=== PATIENT | female | born 1970 | race Two or more races ===

== ENCOUNTER 2024-08-05 07:36 | Inpatient (IN) | payer MEDICAID ==
[~2024-08-05] VITALS: Ht 167.6 cm; Wt 80.0 kg
--- NOTE | 2024-08-05 08:12 | ED.PDOC ---
General HPI Comments 53 year old female presents to the ED with chief complaint of urinary symptoms. Patient reports that she has been experiencing urinary frequency with associated right flank pain, nausea, and minimal urine output. Patient relays that she believes she either has a UTI or kidney stone as she has history of both. Patient denies any vomiting, diarrhea, dysuria, hematuria, fever, chills, or abdominal pain. Chief Complaint: Flank Pain Time Seen by MD: 07:54 Reviewed notes: Nurses Notes, Medications, Allergies Allergies: Coded Allergies: NO KNOWN ALLERGIES (Unverified , 08/05/24) Information Source: Patient Mode of Arrival: Ambulatory Severity: Moderate Inability to void: Moderate Timing: Days Duration: Since onset Prehospital treatment: None Onset: Spontaneous Symptoms: Frequency, Urgency, Other (minimal output) History of: UTI, Kidney stone Location: (R) Flank Modifying factors: None associated signs and symptoms: Flank Pain, Frequency, Urgency Past Medical History PAST MEDICAL HISTORY: DM, Kidney Stones, UTI'S Surgical History: Denies all surgeries [employer] WORK[employer] WORK[employer] History: Denies all [employer] WORK[employer] WORKER Hx Family History Family History: Reviewed,noncontributory to illness Social History Smoker: Non-Smoker Alcohol: Denies ETOH Use Drugs: Denies Drug Use Lives In: Home Constitutional: denies: chills, diaphoresis, fatigue, fever, malaise, sweats, weakness, others EENTM: denies: blurred vision, double vision, ear bleeding, ear discharge, ear drainage, ear pain, ear ringing, eye pain, eye redness, hearing loss, mouth pain, mouth swelling, nasal discharge, nose bleeding, nose congestion, nose pain, photophobia, tearing, throat pain, throat swelling, voice changes, others Respiratory: denies: cough, hemoptysis, orthopnea, SOB at rest, shortness of breath, SOB with excertion, stridor, wheezing, others Cardiovascular: denies: chest pain, dizzy spells, diaphoresis, Dyspnea on exertion, edema, irregular heart beat, left arm pain, lightheadedness, palpitations, PND, syncope, others Gastrointestinal: reports: nausea; denies: abdomen distended, abdominal pain, blood streaked bowels, constipated, diarrhea, dysphagia, difficulty swallowing, hematemesis, melena, poor appetite, poor fluid intake, rectal bleeding, rectal pain, vomiting, others Genitourinary: reports: flank pain, frequency, others (Minimal output); denies: abnormal vagina bleeding, burning, dyspareunia, dysuria, hematuria, incontinence, pain, , vagina discharge, urgency Neurological: denies: dizziness, fainting, headache, left sided numbness, left sided weakness, numbness, paresthesia, pre-existing deficit, right sided numbness, right sided weakness, seizure, speech problems, tingling, tremors, weakness, others Musculoskeletal: denies: back pain, gout, joint pain, joint swelling, muscle pain, muscle stiffness, neck pain, others Integumetry: denies: bruises, change in color, change in hair/nails, dryness, laceration, lesions, lumps, rash, wounds, others Allergic/Immunocompromised: denies: Difficulty Healing, Frequent Infections, Hives, Itching, others Hematologic/Lymphatic: denies: anemia, blood clots, easy bleeding, easy bruising, swollen glands, others Endocrine: denies: excessive hunger, excessive sweating, excessive thirst, excessive urination, flushing, intolerance to cold, intolerance to heat, unexplained weight gain, unexplained weight loss, others Psychiatric: denies: anxiety, bipolar disorder, depression, hopeless, panic disorder, schizophrenia, sleepless, suicidal, others All Other Systems: Reviewed and Negative Physical Exam General Appearance: No Apparent Distress, Normal HEENT: Normal ENT Inspection, PERRL/EOMI Neck: Full Range of Motion, Non-Tender, Normal, Normal Inspection Respiratory: Chest Non-Tender, Lungs Clear, No Accessory Muscle Use, No Respiratory Distress, Normal Breath Sounds Cardiovascular: No Edema, No JVD, No Murmur, No Gallop, Normal Peripheral Pulses, Regular Rate/Rhythm Breast Exam: Deferred Gastrointestinal: No Organomegaly, No Pulsatile Mass, Normal Bowel Sounds, Soft, Other (Right CVA tenderness) Genitalia: Deferred Pelvic: Deferred Rectal: Deferred Extremities: No calf tenderness, Normal capillary refill, Normal inspection, Normal range of motion, Non-tender, No pedal edema Musculoskeletal : Apperance: Normal Neurologic: Alert, manager creative II-XII nml as Tested, No Motor Deficits, Normal Affect, Normal Mood, No Sensory Deficits Cerebellar Function: Normal Reflexes: Normal Skin: Dry, Normal Color, Warm Lymphatic: No Adenopathy Was a procedure done? Was a procedure done?: No Differential Diagnosis Kidney stone (Female): N/A Kidney stone (Male): N/A Penile/Scrotal: N/A Urinary Problem (Male): Plelonephritis, Renal Failure, Urinary Retention, Urolithiasis, UTI X-Ray, Labs, Meds, VS Vital Signs Date Time Temp Pulse Resp B/P (MAP) Pulse Ox O2 Delivery O2 Flow Rate FiO2 08/05/24 09:27 Room Air* 0 21 08/05/24 09:21 81 18 96 Room Air 08/05/24 09:21 97.6 81 18 159/97 (117) 96 97.6 08/05/24 07:45 97.4 95 18 145/90 (108) 96 97.4 Lab Test 08/05/24 10:00 08/05/24 08:08 08/05/24 08:00 Range/Units Lactic Acid Level Pending 2.5 *H 0.4-2.0 mmol/L White Blood Count 8.1 4.4-10.8 10^3/uL Red Blood Count 5.51 H 4.0-5.20 10^6/uL Hemoglobin 13.1 12.2-16.2 g/dL Hematocrit 41.0 36.0-46.0 % Mean Corpuscular Volume 74.4 L 80.0-100.0 fL Mean Corpuscular Hemoglobin 23.8 L 28.0-32.0 pg Mean Corpuscular Hemoglobin Concent 32.0 32.0-36.0 g/dL Red Cell Distribution Width 19.5 H 11.8-14.3 % Platelet Count 230 140-450 10^3/uL Mean Platelet Volume 8.3 6.9-10.8 fL Neutrophils (%) (Auto) 76.8 37.0-80.0 % Lymphocytes (%) (Auto) 14.7 10.0-50.0 % Monocytes (%) (Auto) 6.6 0.0-12.0 % Eosinophils (%) (Auto) 1.6 0.0-7.0 % Basophils (%) (Auto) 0.3 0.0-2.0 % Neutrophils # (Auto) 6.3 1.6-8.6 10 ^3/uL Lymphocytes # (Auto) 1.2 0.4-5.4 10 ^3/uL Monocytes # (Auto) 0.5 0-1.3 10 ^3/uL Eosinophils # (Auto) 0.1 0-0.8 10 ^3/uL Basophils # (Auto) 0 0-0.2 10 ^3/uL Nucleated Red Blood Cells 0.0 % Sodium Level 137 136-145 mmol/L Potassium Level 3.4 L 3.5-5.1 mmol/L Chloride Level 102 98-107 mmol/L Carbon Dioxide Level 25 20-31 mmol/L Anion Gap 10 5-15 Blood Urea Nitrogen 12 9-23 mg/dL Creatinine 0.74 0.550-1.02 mg/dL Glomerular Filtration Rate Calc 98 >90 mL/min BUN/Creatinine Ratio 16.2 10.0-20.0 Serum Glucose 122 H 74-106 mg/dL Calcium Level 9.7 8.7-10.4 mg/dL Urine Color Dark-orange Yellow Urine Clarity Ex.turbid Clear Urine pH 6.0 5.0-9.0 Urine Specific [place] 1.021 1.001-1.035 Urine Protein 1+ H Negative Urine Ketones Negative Negative Urine Blood 3+ H Negative /uL Urine Nitrite 1+ H Negative Urine Bilirubin Negative Negative Urine Urobilinogen 2 H Negative mg/dL Urine Leukocyte Esterase 3+ Negative /uL Urine RBC 7279 0 - 4 /hpf Urine WBC Clumps Present None Seen /hpf Urine Microscopic WBC 962 H 0-5 /HPF Urine Squamous Epithelial Cells None seen <5 /hpf Urine Bacteria None seen None Seen /hpf Urine Yeast (Budding) Few None Seen /hpf Urine Glucose 4+ H Normal mg/dL Urine Test Negative Negative Current Medications Medications (Trade) Dose Ordered Sig/Sophia Route Start Time Stop Time Status Last Admin Sodium Chloride 1,000 ml @ 1,000 mls/hr Q1H ONCE IV 08/05/24 09:30 08/05/24 10:29 DC 08/05/24 09:41 Ceftriaxone Sodium 50 ml @ 100 mls/hr ONCE ONCE IV 08/05/24 09:30 08/05/24 09:59 DC 08/05/24 09:42 Ketorolac Tromethamine (Toradol Injection) 15 mg ONCE ONCE IV 08/05/24 09:45 08/05/24 09:46 DC 08/05/24 09:41 Time of 1ST Reevaluation: 08:54 Reevaluation 1ST: Unchanged Patient Education/Counseling: Diagnosis, Treatment Family Education/Counseling: No Family Present Additional Information Previous medical encounters reviewed: None The following tests were ordered, and results were reviewed by me: CHRISTOS Additional Information was gathered from interviewing the following independent historians: None I reviewed and agreed with the following test results read by other providers: None I discussed treatment and results with medical personnel and: Patient Comprehensive systems review obtained and negative except for what is stated in the HPI. Departure 1 Departure Time of Disposition: 10:41 (Patient presented with abdominal pain that was concerning for possible appendicits, gastritis, cholecystitis, colitis, gastroe nteritis, sbo, or orther possible surgical emergency. Data: 1. I ordered and reviewed the result of at least 3 labs including a CBC, BMP, and Urinalysis. 2. I independently interpreted the following tests: CT Abdoment and Pelvis is concerning for renal colic with larger stone .Risk:This patient has a high risk of morbidity due to further diagnostic testing or treatment and may suffer from an acute abdominal process disorder. Workup reveals renal colic with large stone and likely superimposed infection. and patient should be admitted for further workup. and possible expert consultation. ) Impression: Primary Impression: Renal colic on right side Additional Impression: Acute cystitis Qualified Codes: N30.01 - Acute cystitis with hematuria Disposition: ADMITTED INPATIENT Admit to: Med Surg Condition: Serious Critical Care Note Critical Care Time?: Yes Critical care comment: Intractable abdominal pain Authorized and Performed by: Kajal Pepe MD Total critical care time: Approximately 37 minutes Due to a high probability of clinically significant, life threatening deterioration, the patient required my highest level of preparedness to intervene emergently and I personally spent this critical care time directly and personally managing the patient. This critical care time included obtaining a history; examining the patient; pulse oximetry; ordering and review of studies; arranging urgent treatment with development of a management plan; evaluation of patient's response to treatment; frequent reassessment; and, discussions with other providers. This critical care time was performed to assess and manage the high probability of imminent, life-threatening deterioration that could result in multi-organ failure. It was exclusive of separately billable procedures and treating other patients and teaching time. Please see my other sections and the rest of the note for further information on patient assessment and treatment. Stability Stability form required: No Heart Score Heart Score: Heart Score Response (Comments) Value History N/A 0 EKG N/A 0 Age N/A 0 Risk Factors N/A 0 Troponin N/A 0 Total 0 I personally scribed for KAJAL PEPE MD ([email or web address]) on 08/05/24 at 08:12. Electronically submitted by Eris Martell ([email or web address]). KAJAL PEPE MD Aug 05, 2024 08:12
[2024-08-05 08:24] LABS: Basophils # (auto) 0 10 ^3/uL (0-0.2); Eosinophils # (auto) 0.1 10 ^3/uL (0-0.8); Monocytes # (auto) 0.5 10 ^3/uL (0-1.3); Monocytes % (auto) 6.6 % (0.0-12.0); Red Cell Distribution Width 19.5 % (11.8-14.3)
[2024-08-05 08:26] LABS: Basophils % (auto) 0.3 % (0.0-2.0); Eosinophils % (auto) 1.6 % (0.0-7.0); Hemoglobin 13.1 g/dL (12.2-16.2); Lymphocytes # (auto) 1.2 10 ^3/uL (0.4-5.4); Lymphocytes % (auto) 14.7 % (10.0-50.0); Mean Corpuscular Hemoglobin 23.8 pg (28.0-32.0); Mean Corpuscular Volume 74.4 fL (80.0-100.0); Neutrophils # (auto) 6.3 10 ^3/uL (1.6-8.6); Neutrophils % (auto) 76.8 % (37.0-80.0); Platelet Count (auto) 230 10^3/uL (140-450); Red Blood Cells 5.51 10^6/uL (4.0-5.20); White Blood Cell 8.1 10^3/uL (4.4-10.8)
[2024-08-05 08:30] LABS: Urine Bacteria None Seen /hpf (None Seen)
[2024-08-05 08:36] LABS: Chloride 102 mmol/L (98-107); Sodium 137 mmol/L (136-145)
[2024-08-05 08:37] LABS: Anion Gap 10 (5-15); Calcium 9.7 mg/dL (8.7-10.4); Carbon Dioxide 25 mmol/L (20-31); Potassium 3.4 mmol/L (3.5-5.1)
[2024-08-05 08:42] LABS: BUN/Creatinine Ratio 16.2 (10.0-20.0); Blood Urea Nitrogen 12 mg/dL (9-23)
[2024-08-05 08:43] LABS: Glucose 122 mg/dL (74-106)
[2024-08-05 08:48] LABS: Lactic Acid w/Reflex 2.5 mmol/L (0.4-2.0)
[2024-08-05 09:21] LABS: Urine Blood 3+ /uL (Negative); Urine Budding Yeast FEW /hpf (None Seen); Urine Clarity Ex.Turbid (Clear); Urine Color Dark-Orange (Yellow); Urine Protein, UAD 1+ (Negative); Urine Specific Gravity 1.021 (1.001-1.035); Urine Squamous Epithelial Cell None Seen /hpf (<5); Urine Urobilinogen 2 mg/dL (Negative); Urine WBC 962 /HPF (0-5); Urine WBC Clumps PRESENT /hpf (None Seen)
[2024-08-05] MEDS: KETOROLAC TROMETH 30 MG/ML 1ML VIAL IV ONE (09:41)
[2024-08-05] MEDS: SODIUM CHLORIDE 0.9% 1,000 ML IV ONE (09:41)
[2024-08-05] MEDS: cefTRIAXone 1GM/50ML D5W 50 ML IV ONE (09:42)
--- NOTE | 2024-08-05 10:36 | DVH ---
CT ABDOMEN AND PELVIS WITHOUT CONTRAST CLINICAL HISTORY: right flank pain TECHNIQUE: Multiple contiguous axial images of the abdomen and pelvis without intravenous contrast. T he images were reformatted degenerate coronal and sagittal reconstructions. All CT scans at this medical facility are performed using dose modulation techniques as appropriate t o a performed exam including the following:Automated exposure control was utilized; adjustment of the MA and/or KV according to patient size; and use of iterative reconstruction technique. Radiation Dose Information: CT Dose: CTDI volume is 7.8 mGy. Dose-length product is 403 mGy*cm Comparison: None FINDINGS: Evaluation of the abdomen and pelvis is limited without intravenous contrast. There is a 5 mm calcification in the right pelvis along the expected course of the right ureter likel y a distal ureteral calculus. The visualized right ureter is mildly dilated. There is mild right hydr onephrosis. There is no evidence of left renal nephrolithiasis or hydronephrosis. The liver, gallbladder, pancreas, adrenal glands, and spleen appear within normal limits. There is no gross evidence of abdominal lymphadenopathy. There is no free fluid or free air. The stomach grossly appears unremarkable. The small and large bowel loops demonstrate normal caliber and distribution. The appendix is not seen in the right lower quadrant abdomen. There are no seconda ry signs of acute appendicitis. The abdominal aorta and IVC appear within normal limits. The bladder appears unremarkable for the degree of distention. The uterus appears within normal limit s.. There is no gross evidence of a pelvic mass. There is no free fluid collection. Lung bases are clear. There is no acute osseous abnormality. IMPRESSION: 1. 5 mm calcification in the right pelvis along the expected course of the right ureter likely a dist al ureteral calculus. There is mild right hydroureteronephrosis. HS:Y
[2024-08-05] MEDS: TAMSULOSIN HYDROCHLORIDE 0.4 MG CAP PO ONE (11:27)
[2024-08-05] MEDS: MORPHINE SULFATE 4 MG/ML SYR/VIAL IV ONE (11:30)
[2024-08-05] MEDS ORDERED: DEXTROSE (50%) 50ML SYRG IV PRN (14:15)
[2024-08-05] MEDS ORDERED: ACETAMINOPHEN 325 MG TAB PO PRN (14:15)
--- NOTE | 2024-08-05 14:19 | DVHHP2 ---
History of Present Illness Reason for Visit: Right flank pain History of Present Illness Vesta Vázquez is a 53-year-old female with past medical history of diabetes, UTIs, kidney stones and appendectomy who presents to the ED with right flank pain. Patient states that the pain is currently 8/10 sharp and intermittent nature. Patient reports that she constantly gets UTIs and that this is the same kind of pain. Patient denies any recent trauma or injury, recent sick contacts, fever or chills, abdominal pain, nausea, vomiting, diarrhea, chest pain, shortness of breath, lightheadedness, weakness, or dizziness. Renal/: UTI Endocrine: Diabetes Past Medical History Kidney stones Past Surgical History: Appendectomy Family History: DM, Other (Mom with diabetes) Smoke: No ALCOHOL: none Drugs: None Lives: with Family Domestic Violence: Neg Review of Systems Genitourinary: Dysuria, Frequency, Other (Right flank pain) Musculoskeletal: other (Right flank pain) Allergies: Coded Allergies: NO KNOWN ALLERGIES (Unverified , 08/05/24) Exam Vital Signs Vital Signs Date Time Temp Pulse Resp B/P (MAP) Pulse Ox O2 Delivery O2 Flow Rate FiO2 08/05/24 12:21 98.6 81 18 142/75 (97) 96 98.6 08/05/24 09:27 Room Air* 0 21 General Appearance: Alert, Oriented X3, Cooperative, No acute distress HEENT: Atraumatic, PERRLA, EOMI, Mucous membr. moist/pink Respiratory: Clear to auscultation, Normal air movement Cardiovascular: Regular rate, Normal S1, Normal S2, No murmurs Abdominal: Normal bowel sounds, Soft, No tenderness, No hepatospenomegaly, No masses Extremities: No clubbing, No cyanosis, No edema, Normal pulses, No tenderness/swelling Skin: No significant lesion Neuro: Normal gait, Normal speech, Strength at 5/5 X4 ext, Normal tone, Sensation intact Psych/Mental Status: Mental status NL, Mood NL Labs/Xrays Labs Test 08/05/24 10:00 08/05/24 08:08 08/05/24 08:00 Range/Units Lactic Acid Level 2.4 *H 0.4-2.0 mmol/L White Blood Count 8.1 4.4-10.8 10^3/uL Red Blood Count 5.51 H 4.0-5.20 10^6/uL Hemoglobin 13.1 12.2-16.2 g/dL Hematocrit 41.0 36.0-46.0 % Mean Corpuscular Volume 74.4 L 80.0-100.0 fL Mean Corpuscular Hemoglobin 23.8 L 28.0-32.0 pg Mean Corpuscular Hemoglobin Concent 32.0 32.0-36.0 g/dL Red Cell Distribution Width 19.5 H 11.8-14.3 % Platelet Count 230 140-450 10^3/uL Mean Platelet Volume 8.3 6.9-10.8 fL Neutrophils (%) (Auto) 76.8 37.0-80.0 % Lymphocytes (%) (Auto) 14.7 10.0-50.0 % Monocytes (%) (Auto) 6.6 0.0-12.0 % Eosinophils (%) (Auto) 1.6 0.0-7.0 % Basophils (%) (Auto) 0.3 0.0-2.0 % Neutrophils # (Auto) 6.3 1.6-8.6 10 ^3/uL Lymphocytes # (Auto) 1.2 0.4-5.4 10 ^3/uL Monocytes # (Auto) 0.5 0-1.3 10 ^3/uL Eosinophils # (Auto) 0.1 0-0.8 10 ^3/uL Basophils # (Auto) 0 0-0.2 10 ^3/uL Nucleated Red Blood Cells 0.0 % Sodium Level 137 136-145 mmol/L Potassium Level 3.4 L 3.5-5.1 mmol/L Chloride Level 102 98-107 mmol/L Carbon Dioxide Level 25 20-31 mmol/L Anion Gap 10 5-15 Blood Urea Nitrogen 12 9-23 mg/dL Creatinine 0.74 0.550-1.02 mg/dL Glomerular Filtration Rate Calc 98 >90 mL/min BUN/Creatinine Ratio 16.2 10.0-20.0 Serum Glucose 122 H 74-106 mg/dL Calcium Level 9.7 8.7-10.4 mg/dL Urine Color Dark-orange Yellow Urine Clarity Ex.turbid Clear Urine pH 6.0 5.0-9.0 Urine Specific [place] 1.021 1.001-1.035 Urine Protein 1+ H Negative Urine Ketones Negative Negative Urine Blood 3+ H Negative /uL Urine Nitrite 1+ H Negative Urine Bilirubin Negative Negative Urine Urobilinogen 2 H Negative mg/dL Urine Leukocyte Esterase 3+ Negative /uL Urine RBC 7279 0 - 4 /hpf Urine WBC Clumps Present None Seen /hpf Urine Microscopic WBC 962 H 0-5 /HPF Urine Squamous Epithelial Cells None seen <5 /hpf Urine Bacteria None seen None Seen /hpf Urine Yeast (Budding) Few None Seen /hpf Urine Glucose 4+ H Normal mg/dL Urine Test Negative Negative CT ABDOMEN AND PELVIS WITHOUT CONTRAST CLINICAL HISTORY: right flank pain TECHNIQUE: Multiple contiguous axial images of the abdomen and pelvis without intravenous contrast. The images were reformatted degenerate coronal and sagittal reconstructions. All CT scans at this medical facility are performed using dose modulation techniques as appropriate to a performed exam including the following:Automated exposure control was utilized; adjustment of the MA and/or KV according to patient size; and use of iterative reconstruction technique. Radiation Dose Information: CT Dose: CTDI volume is 7.8 mGy. Dose-length product is 403 mGy*cm Comparison: None FINDINGS: Evaluation of the abdomen and pelvis is limited without intravenous contrast. There is a 5 mm calcification in the right pelvis along the expected course of the right ureter likely a distal ureteral calculus. The visualized right ureter is mildly dilated. There is mild right hydronephrosis. There is no evidence of left renal nephrolithiasis or hydronephrosis. The liver, gallbladder, pancreas, adrenal glands, and spleen appear within normal limits. There is no gross evidence of abdominal lymphadenopathy. There is no free fluid or free air. The stomach grossly appears unremarkable. The small and large bowel loops demonstrate normal caliber and distribution. The appendix is not seen in the right lower quadrant abdomen. There are no secondary signs of acute appendicitis. The abdominal aorta and IVC appear within normal limits. The bladder appears unremarkable for the degree of distention. The uterus appears within normal limits.. There is no gross evidence of a pelvic mass. There is no free fluid collection. Lung bases are clear. There is no acute osseous abnormality. IMPRESSION: 1. 5 mm calcification in the right pelvis along the expected course of the right ureter likely a distal ureteral calculus. There is mild right hydroureteronephrosis. Assessment/Plan Assessment/Plan Assessment Intractable right flank pain Acute cystitis Mild right hydro ureter nephrosis Distal ureteral calculus Hypokalemia Lactic acidosis likely due to acute cystitis History of diabetes type 2 History of appendectomy History of recurrent UTIs Plan Admit to med surge Replete lytes UA Blood cultures CT abdomen pelvis Antiemetics Pain management Flomax IV antibiotics-ceftriaxone IV fluids HCG Hemoglobin A1c ISS and Accu-Cheks Renal ultrasound ordered Home medications reconciled Discussed plan of care with patient and nurse DVT prophylaxis -not indicated patient ambulating PUD prophylaxis not indicated no history of GERD or GI bleed Plan discussed with: Patient My Orders Orders - BOOM HERNANDEZ Procedure Category Date Status Time Ceftriaxone Ivpb PHA 08/05/24 Verified Rocephin 14:15 Tamsulosin PHA 08/05/24 Verified Hydrochloride (Flomax) 18:00 Admit ADMIT 08/05/24 Verified 14:04 Allergies MICHELLE 08/05/24 Verified 14:04 Code Status CODE 08/05/24 Verified 14:04 0.9% Ns 1000 Ml PHA 08/05/24 Verified 14:15 Hydrocodone-Acet PHA 08/05/24 Verified 5/325mg Tab (Dane 14:15 Ondansetron Hcl PHA 08/05/24 Verified (Zofran) 14:15 Complete Blood Count LAB 08/06/24 Verified 04:00 Comprehensive LAB 08/06/24 Verified Metabolic Panel 04:00 Cardiac DIET 08/05/24 Verified Diet-2gna,Lofat,Lochol Dinner Acetaminophen Tablet PHA 08/05/24 Verified (Tylenol Tablet) 14:15 Morphine Sulfate PHA 08/05/24 Verified Injection 14:15 Date of Service: Aug 05, 2024 Billing Provider: BOOM HERNANDEZ Common Visit Codes: [id number] INP/OBS CARE (HIGH) BOOM HERNANDEZ Aug 05, 2024 14:19
[2024-08-05] MEDS ORDERED: CHOL20003 PO (14:36)
[2024-08-05] MEDS ORDERED: RAME8TAB26 PO (14:36)
[2024-08-05] MEDS ORDERED: ATOR40TA52 PO (14:36)
[2024-08-05 14:50] VITALS: O2SAT 96
--- NOTE | 2024-08-05 14:56 | DVH ---
INDICATION: right flank pain TECHNIQUE: Multiple real-time sonographic images of the kidneys and bladder were obtained. COMPARISON: None FINDINGS: RIGHT kidney measures 12.1 cm in length. No hydronephrosis. Nonobstructing stone in the upper pole measures 0.3 cm. LEFT kidney measures 9.9 cm in length. No hydronephrosis. No large intraluminal masses are seen in the bladder. IMPRESSION: Nonobstructing stone in the upper pole of the right kidney measures 0.3 cm.
[2024-08-05] MEDS: SODIUM CHLORIDE 0.9% 1,000 ML IV SCH (14:59)
[2024-08-05 15:04] VITALS: BP 144/79; PULSE 76; RESP 16; TEMP 97.6; O2SAT 96
[2024-08-05] MEDS: MORPHINE SULFATE INJ 2 MG/ml SYRG IV PRN (15:38)
[2024-08-05] MEDS: ONDANSETRON HCL 4 MG/2 ML VIAL IV PRN (15:52)
[2024-08-05] MEDS: ACCU-CHEK COMFORT CURVE STRIP VI SCH (16:49)
[2024-08-05] MEDS: InsuLIN REG 1unit/0.01ml Soln (100units/ml) SC SCH (16:49)
[2024-08-05 17:13] VITALS: BP 116/61; PULSE 68; RESP 16; TEMP 97.4; O2SAT 98
[2024-08-05 18:02] VITALS: PULSE 76; RESP 20; O2SAT 100
[2024-08-05 20:00] VITALS: PULSE 98; RESP 18; O2SAT 97
[2024-08-05 21:00] VITALS: BP 115/65; PULSE 98; RESP 18; TEMP 98; O2SAT 97
[2024-08-06] VITALS (8 sets, daily range): BP systolic 120–148; BP diastolic 68–84; PULSE 72–96; RESP 17–20; TEMP 97.8–98.6; O2SAT 95–99
[2024-08-06 07:19] LABS: Alanine Aminotransferase 12 U/L (7-40); Albumin 4.2 g/dL (3.2-4.8); Alkaline Phosphatase 72 U/L (46-116); Anion Gap 10 (5-15); BUN/Creatinine Ratio 15.2 (10.0-20.0); Bilirubin, Total 0.9 mg/dL (0.2-1.0); Blood Urea Nitrogen 12 mg/dL (9-23); Carbon Dioxide 24 mmol/L (20-31); Chloride 104 mmol/L (98-107); Potassium 3.8 mmol/L (3.5-5.1); Sodium 138 mmol/L (136-145); Total Protein 6.5 g/dL (5.7-8.2)
[2024-08-06 07:21] LABS: Basophils # (auto) 0 10 ^3/uL (0-0.2); Eosinophils # (auto) 0.1 10 ^3/uL (0-0.8); Hematocrit 37.2 % (36.0-46.0); Hemoglobin 11.6 g/dL (12.2-16.2); Mean Corpuscular Hemoglobin 23.6 pg (28.0-32.0); Monocytes # (auto) 0.3 10 ^3/uL (0-1.3); Neutrophils # (auto) 2.2 10 ^3/uL (1.6-8.6)
[2024-08-06 07:24] LABS: Aspartate Aminotransferase 12 U/L (13-40); Basophils % (auto) 0.5 % (0.0-2.0); Eosinophils % (auto) 3.2 % (0.0-7.0); Glucose 181 mg/dL (74-106); Lymphocytes # (auto) 1.2 10 ^3/uL (0.4-5.4); Lymphocytes % (auto) 30.8 % (10.0-50.0); Mean Corpuscular Hgb Conc. 31.2 g/dL (32.0-36.0); Mean Corpuscular Volume 75.6 fL (80.0-100.0); Monocytes % (auto) 7.8 % (0.0-12.0); Neutrophils % (auto) 57.7 % (37.0-80.0); Nucleated Red Blood Cells % 0.2 %; Platelet Count (auto) 186 10^3/uL (140-450); Red Blood Cells 4.92 10^6/uL (4.0-5.20); Red Cell Distribution Width 19.6 % (11.8-14.3); White Blood Cell 3.8 10^3/uL (4.4-10.8)
[2024-08-06 08:11] LABS: Anisocytosis Slight; Hypochromia Slight; Platelet Estimate Adequate
[2024-08-06] MEDS: cefTRIAXone 1GM/50ML D5W 50 ML IV SCH (08:53)
[2024-08-06] MEDS: HYDROcodone-ACET 5/325MG TAB PO PRN (13:56)
--- NOTE | 2024-08-06 14:54 | DVHPN2 ---
Subjective Better today Reviewed: Care Plan, H&P, Labs, Medications, Previous Orders, Radiology Changes from previous H/P or p: No Changes Genitourinary: Other (Right flank pain) Objective Vitals Vital Signs Date Time Temp Pulse Resp B/P (MAP) Pulse Ox O2 Delivery O2 Flow Rate FiO2 08/06/24 13:00 98.1 77 18 146/77 (100) 97 98.1 08/06/24 08:00 Room Air* 0 21 Intake/Output Intake and Output 08/06/24 07:00 Intake Total 1530 ml Balance 1530 ml Intake Oral 480 ml IV Total 1050 ml # Voids 1 General Appearance: Alert, Oriented X3, Cooperative, No acute distress HEENT: Atraumatic Lungs: Clear to auscultation Cardiovascular: Regular rate Abdomen: Other (Tenderness in right flank area) Medications Current Medications Medications Dose Ordered Sig/Sophia Route Start Time Stop Time Status Last Admin Dose Admin Ceftriaxone Sodium 50 ml @ 100 mls/hr DAILY@09 IV 08/06/24 09:00 08/06/24 08:53 100 MLS/HR Tamsulosin HCl 0.4 mg QPM PO 08/06/24 18:00 Sodium Chloride 1,000 ml @ 100 mls/hr Q10H IV 08/05/24 14:15 08/06/24 10:15 100 MLS/HR Acetaminophen/ Hydrocodone Bitart 1 tab Q4HP PRN PO 08/05/24 14:15 08/06/24 13:56 1 TAB Ondansetron HCl 4 mg Q4HP PRN IV 08/05/24 14:15 08/05/24 15:52 4 MG Acetaminophen 650 mg Q6HP PRN PO 08/05/24 14:15 Morphine Sulfate 2 mg Q4HPRN PRN IV 08/05/24 14:15 08/06/24 06:01 2 MG Diagnostic Test (Pha) 1 strip ACHS 08/05/24 17:00 08/06/24 11:44 1 STRIP Insulin Human Regular ACHS SC 08/05/24 17:00 08/06/24 11:45 2 UNITS Dextrose 50 ml UD PRN IV 08/05/24 14:15 Laboratory Results Laboratory Tests 08/06/24 05:18 Chemistry Test 08/06/24 05:18 Albumin 4.2 g/dL (3.2-4.8) Calcium Level 9.0 mg/dL (8.7-10.4) Total Protein 6.5 g/dL (5.7-8.2) LFT Test 08/06/24 05:18 Alanine Aminotransferase (ALT) 12 U/L (7-40) Alkaline Phosphatase 72 U/L (46-116) Aspartate Amino Transferase (AST) 12 U/L (13-40) L Total Bilirubin 0.9 mg/dL (0.2-1.0) Urinalysis Test 08/05/24 08:00 Urine Color Dark-orange (Yellow) Urine Clarity Ex.turbid (Clear) Urine pH 6.0 (5.0-9.0) Urine Specific [place] 1.021 (1.001-1.035) Urine Protein 1+ (Negative) H Urine Ketones Negative (Negative) Urine Blood 3+ /uL (Negative) H Urine Nitrite 1+ (Negative) H Urine Bilirubin Negative (Negative) Urine Urobilinogen 2 mg/dL (Negative) H Urine Leukocyte Esterase 3+ /uL (Negative) Urine RBC 7279 /hpf (0 - 4) Urine WBC Clumps Present /hpf (None Seen) Urine Microscopic WBC 962 /HPF (0-5) H Urine Squamous Epithelial Cells None seen /hpf (<5) Urine Bacteria None seen /hpf (None Seen) Urine Yeast (Budding) Few /hpf (None Seen) Urine Glucose 4+ mg/dL (Normal) H Urine Test Negative (Negative) Microbiology Microbiology Date/Time Source Procedure Growth Status 08/05/24 10:00 Blood Blood Culture - Preliminary NO GROWTH AFTER 24 HOURS OF INCUBATION. Resulted Assessment/Plan Assessment/Plan Right flank pain Right nephrolithiasis Right mild hydronephrosis UTI/cystitis Diabetes Leukopenia Anemia Obesity with BMI 2022 and multiple comorbidities including diabetes Plan: IV fluid and IV antibiotic. Urology consult. Further plan per orders Plan discussed with: Patient My Orders Orders - SONIA AMIN MD Procedure Category Date Status Time * Urology Consult CONS 08/06/24 Transmitted 09:38 Date of Service: Aug 06, 2024 Billing Provider: SONIA AMIN MD Common Visit Codes: [id number] INP/OBS CARE(HIGH) SONIA AMIN MD Aug 06, 2024 14:54
[2024-08-06] MEDS: TAMSULOSIN HYDROCHLORIDE 0.4 MG CAP PO SCH (17:47)
--- NOTE | 2024-08-06 19:10 | DVHINCON2 ---
Date of service: Aug 06, 2024 Referring Physician Afshin Reason for Consultation stone History of Present Illness 3 days hx increasing right flank pain admitted yesterday. prior staghorn treated by perc 20 years ago,no stones since Past Medical History reviewed Past Surgical History reviewed Family History: Diabetes mellitus G8 MOTHER G8 FATHER Allergies: Coded Allergies: NO KNOWN ALLERGIES (Unverified , 08/05/24) Home Meds Reported Medications Ramelteon (Ramelteon) 8 Mg Tab, 1 TAB PO 08/05/24 Atorvastatin Calcium (ATORVASTATIN CALCIUM) 40 Mg Tab, 1 TAB PO 08/05/24 Cholecalciferol (Vitamin D-3 Super Strengt) 2,000 Unit Tab, 1 TAB PO DAILY 08/05/24 Current Medications Current Medications Medications (Trade) Dose Ordered Sig/Sophia Route PRN Reason Start Time Stop Time Status Last Admin Ceftriaxone Sodium 50 ml @ 100 mls/hr DAILY@09 IV 08/06/24 09:00 08/06/24 08:53 Tamsulosin HCl (Flomax) 0.4 mg QPM PO 08/06/24 18:00 08/06/24 17:47 Review of Systems noted Vital Signs Vital Signs Date Time Temp Pulse Resp B/P (MAP) Pulse Ox O2 Delivery O2 Flow Rate FiO2 08/06/24 16:44 98.0 78 17 148/82 (104) 98 98.0 08/06/24 08:00 Room Air* 0 21 Labs/Diagnostic Data Labs Test 08/06/24 17:21 08/06/24 05:18 08/05/24 10:00 08/05/24 08:08 Range/Units POC Glucose 143 H 70-106 mg/dl White Blood Count 3.8 #L 4.4-10.8 10^3/uL Red Blood Count 4.92 4.0-5.20 10^6/uL Hemoglobin 11.6 L 12.2-16.2 g/dL Hematocrit 37.2 36.0-46.0 % Mean Corpuscular Volume 75.6 L 80.0-100.0 fL Mean Corpuscular Hemoglobin 23.6 L 28.0-32.0 pg Mean Corpuscular Hemoglobin Concent 31.2 L 32.0-36.0 g/dL Red Cell Distribution Width 19.6 H 11.8-14.3 % Platelet Count 186 140-450 10^3/uL Mean Platelet Volume 8.9 6.9-10.8 fL Neutrophils (%) (Auto) 57.7 37.0-80.0 % Lymphocytes (%) (Auto) 30.8 10.0-50.0 % Monocytes (%) (Auto) 7.8 0.0-12.0 % Eosinophils (%) (Auto) 3.2 0.0-7.0 % Basophils (%) (Auto) 0.5 0.0-2.0 % Neutrophils # (Auto) 2.2 1.6-8.6 10 ^3/uL Lymphocytes # (Auto) 1.2 0.4-5.4 10 ^3/uL Monocytes # (Auto) 0.3 0-1.3 10 ^3/uL Eosinophils # (Auto) 0.1 0-0.8 10 ^3/uL Basophils # (Auto) 0 0-0.2 10 ^3/uL Nucleated Red Blood Cells 0.2 % Platelet Estimate Adequate Hypochromasia (manual) Slight Anisocytosis (manual) Slight Microcytosis Slight Sodium Level 138 136-145 mmol/L Potassium Level 3.8 3.5-5.1 mmol/L Chloride Level 104 98-107 mmol/L Carbon Dioxide Level 24 20-31 mmol/L Anion Gap 10 5-15 Blood Urea Nitrogen 12 9-23 mg/dL Creatinine 0.79 0.550-1.02 mg/dL Glomerular Filtration Rate Calc 91 >90 mL/min BUN/Creatinine Ratio 15.2 10.0-20.0 Serum Glucose 181 H 74-106 mg/dL Calcium Level 9.0 8.7-10.4 mg/dL Total Bilirubin 0.9 0.2-1.0 mg/dL Aspartate Amino Transferase (AST) 12 L 13-40 U/L Alanine Aminotransferase (ALT) 12 7-40 U/L Alkaline Phosphatase 72 46-116 U/L Total Protein 6.5 5.7-8.2 g/dL Albumin 4.2 3.2-4.8 g/dL Lactic Acid Level 2.4 *H 0.4-2.0 mmol/L Hemoglobin A1c 6.8 H <5.7 % A1C Test 08/05/24 08:00 Range/Units Urine Color Dark-orange Yellow Urine Clarity Ex.turbid Clear Urine pH 6.0 5.0-9.0 Urine Specific [place] 1.021 1.001-1.035 Urine Protein 1+ H Negative Urine Ketones Negative Negative Urine Blood 3+ H Negative /uL Urine Nitrite 1+ H Negative Urine Bilirubin Negative Negative Urine Urobilinogen 2 H Negative mg/dL Urine Leukocyte Esterase 3+ Negative /uL Urine RBC 7279 0 - 4 /hpf Urine WBC Clumps Present None Seen /hpf Urine Microscopic WBC 962 H 0-5 /HPF Urine Squamous Epithelial Cells None seen <5 /hpf Urine Bacteria None seen None Seen /hpf Urine Yeast (Budding) Few None Seen /hpf Urine Glucose 4+ H Normal mg/dL Urine Test Negative Negative Microbiology Date/Time Source Procedure Growth Status 08/05/24 10:00 Blood Blood Culture - Preliminary NO GROWTH AFTER 24 HOURS OF INCUBATION. Resulted Assessment right distal ureteral stone with mild obstruction Plan/Recommendation KUB,hydration,analgesia Plan discussed with: Patient CHARO JAIME MD Aug 06, 2024 19:10
[2024-08-07] VITALS (8 sets, daily range): BP systolic 125–152; BP diastolic 75–84; PULSE 65–90; RESP 16–20; TEMP 97.5–98.3; O2SAT 95–99
--- NOTE | 2024-08-07 09:17 | DVH ---
Indication: right ureteral stone Technique: 2 views abdomen Comparison: None FINDINGS/IMPRESSION: Large volume stool within the colon. Possible calculus projecting over the left renal mid pole measuring 4 mm. Pelvic vascular phleboliths.
[2024-08-07] MEDS ORDERED: LABETALOL HCL 20 MG/4 ML VL IV PRN (14:45)
--- NOTE | 2024-08-07 15:10 | DVHPN2 ---
Subjective Better today Reviewed: Care Plan, H&P, Labs, Medications, Previous Orders, Radiology Changes from previous H/P or p: No Changes Genitourinary: Other (Right flank pain) Objective Vitals Vital Signs Date Time Temp Pulse Resp B/P (MAP) Pulse Ox O2 Delivery O2 Flow Rate FiO2 08/07/24 13:00 98.1 81 18 152/79 (103) 96 98.1 08/07/24 08:00 Room Air* 0 21 Intake/Output Intake and Output 08/07/24 07:00 Intake Total 930 ml Balance 930 ml Intake Oral 880 ml IV Total 50 ml General Appearance: Alert, Oriented X3, Cooperative, No acute distress HEENT: Atraumatic Lungs: Clear to auscultation Cardiovascular: Regular rate Abdomen: Other (Tenderness in right flank area) Medications Current Medications Medications Dose Ordered Sig/Sophia Route Start Time Stop Time Status Last Admin Dose Admin Ceftriaxone Sodium 50 ml @ 100 mls/hr DAILY@09 IV 08/06/24 09:00 08/07/24 09:05 100 MLS/HR Tamsulosin HCl 0.4 mg QPM PO 08/06/24 18:00 08/06/24 17:47 0.4 MG Sodium Chloride 1,000 ml @ 100 mls/hr Q10H IV 08/05/24 14:15 08/07/24 05:20 100 MLS/HR Acetaminophen/ Hydrocodone Bitart 1 tab Q4HP PRN PO 08/05/24 14:15 08/06/24 13:56 1 TAB Ondansetron HCl 4 mg Q4HP PRN IV 08/05/24 14:15 08/05/24 15:52 4 MG Acetaminophen 650 mg Q6HP PRN PO 08/05/24 14:15 Morphine Sulfate 2 mg Q4HPRN PRN IV 08/05/24 14:15 08/07/24 09:06 2 MG Diagnostic Test (Pha) 1 strip ACHS 08/05/24 17:00 08/07/24 11:20 1 STRIP Insulin Human Regular ACHS SC 08/05/24 17:00 08/07/24 11:21 3 UNITS Dextrose 50 ml UD PRN IV 08/05/24 14:15 Labetalol HCl 10 mg Q6HPRN PRN IV 08/07/24 14:45 Laboratory Results Laboratory Tests 08/06/24 05:18 Urinalysis Test 08/05/24 08:00 Urine Color Dark-orange (Yellow) Urine Clarity Ex.turbid (Clear) Urine pH 6.0 (5.0-9.0) Urine Specific [place] 1.021 (1.001-1.035) Urine Protein 1+ (Negative) H Urine Ketones Negative (Negative) Urine Blood 3+ /uL (Negative) H Urine Nitrite 1+ (Negative) H Urine Bilirubin Negative (Negative) Urine Urobilinogen 2 mg/dL (Negative) H Urine Leukocyte Esterase 3+ /uL (Negative) Urine RBC 7279 /hpf (0 - 4) Urine WBC Clumps Present /hpf (None Seen) Urine Microscopic WBC 962 /HPF (0-5) H Urine Squamous Epithelial Cells None seen /hpf (<5) Urine Bacteria None seen /hpf (None Seen) Urine Yeast (Budding) Few /hpf (None Seen) Urine Glucose 4+ mg/dL (Normal) H Urine Test Negative (Negative) Microbiology Microbiology Date/Time Source Procedure Growth Status 08/05/24 10:00 Blood Blood Culture - Preliminary NO GROWTH AFTER 48 HOURS OF INCUBATION. Resulted Assessment/Plan Assessment/Plan Right flank pain Right nephrolithiasis Right mild hydronephrosis UTI/cystitis Diabetes Leukopenia Anemia Obesity with BMI 2022 and multiple comorbidities including diabetes Plan: Continue current plan of care. Plan discussed with: Patient My Orders Orders - SONIA AMIN MD Procedure Category Date Status Time Labetalol Hcl PHA 08/07/24 In Process (Labetalol Hcl) 14:45 Date of Service: Aug 07, 2024 Billing Provider: SONIA AMIN MD Common Visit Codes: [id number] INP/OBS CARE(HIGH) SONIA AMIN MD Aug 07, 2024 15:09
[2024-08-07] MEDS: MELATONIN 5 MG TAB PO ONE (21:55)
[2024-08-08 01:00] VITALS: BP 117/67; PULSE 63; RESP 18; TEMP 97.7; O2SAT 94
[2024-08-08 05:00] VITALS: BP 147/82; PULSE 67; RESP 18; TEMP 97.7; O2SAT 97
[2024-08-08 08:30] VITALS: PULSE 85; RESP 17; O2SAT 99
[2024-08-08 08:59] VITALS: BP 149/73; PULSE 63; RESP 18; TEMP 97.6; O2SAT 96
[2024-08-08] MEDS ORDERED: BACDST PO (12:06)
[2024-08-08 13:00] VITALS: BP 150/84; PULSE 69; RESP 18; TEMP 97.7; O2SAT 97
[2024-08-08 13:54] VITALS: TEMP 36.5
== END 2024-08-08 14:20 | disposition home or self-care (01) | DRG 463 ==
LOC: ER 07:36 → EDBD 14:04 → OVERFLOW 14:04 → CENTRAL 17:35
PROVIDERS: ADMIT Hospitalist; ATTEND Hospitalist
DX: N13.6 Pyonephrosis (principal); E87.20 Acidosis, unspecified; E11.65 Type 2 diabetes mellitus with hyperglycemia; D64.9 Anemia, unspecified; D72.819 Decreased white blood cell count, unspecified; E66.9 Obesity, unspecified; Z68.28 Body mass index [BMI] 28.0-28.9, adult; E87.6 Hypokalemia; N30.00 Acute cystitis without hematuria; Z83.3 Family history of diabetes mellitus; Z87.440 Personal history of urinary (tract) infections; Z90.49 Acquired absence of other specified parts of digestive tract; Z79.899 Other long term (current) drug therapy
CPT/HCPCS: 36415; 74018; 74176; 76775; 80048; 80053; 81001; 81025; 82962; 83036; 83605; 85025; 87040; 96365; 96375; 99291; G0378; J1815; J1885; J2405

== ENCOUNTER 2025-03-25 18:31 | Emergency (ER) | payer MEDICAID ==
[~2025-03-25] VITALS: Ht 167.6 cm; Wt 184.4 kg
[~2025-03-25 18:31] MED LIST: ATOR40TA52 PO; BACDST PO; CHOL20003 PO; RAME8TAB26 PO
--- NOTE | 2025-03-25 19:53 | ED.PDOC ---
GI ASSESSMENT HPI Comments 54 y.o female presents to the ED for a chief complaint of diffused abdominal pain radiating to her back bilaterally, associated with dysuria and abdominal distention. Patient reports recent diagnose of H.pylori and war rx Talicia which she started 4 days ago. She mentions s/p starting tx, symptoms started. Abdominal pain is described as a burning sensation that is tender on palpation and has no alleviating factors. Patient reports similar symptoms in the past with UTI diagnosis which she mentions are reoccurring and when she was dx with gallstones as well. She denies any fever, chills, hematuria, nausea, vomiting, diarrhea, constipation, rectal bleeding. Vitals: Temp: 98.2 F BP: 163/99 HR: 104 RR: 17 SPO2: 97% RA Past medical history: Gallstones, reoccurring UTI's, H.pylori, DM, kidney stones. Past surgical history: Appendectomy, kidney stone removal gaming: 54 F, abd pain HPI: Poor Historian. REVIEW OF SYSTEMS: CONSTITUTIONAL: Denies acute: fever, diaphoresis, chills, HEAD: Denies acute: headache, photophobia Eyes: Denies acute: Double vision, vision loss, eye pain, eye discharge. EARS: Denies acute: tinnitus, hearing loss, ear discharge, ear pain, THROAT: Denies acute: sore throat, swelling, difficulty swallowing , pain with swallowing, change in voice. NECK: Denies acute: neck pain, neck swelling, stiff neck. HEART: Denies acute : chest pain, palpitations, LUNGS: Denies acute: SOB, wheezing, cough, hemoptysis ABDOMEN: Denies acute: Nausea, Vomiting, diarrhea, melena , hematemesis, hematochezia SKIN: Denies acute: rash, redness, lesions, itchiness. EXTREMITIES: Denies acute: calf pain, numbness, tingling, weakness, denies pain in extremity. Denies acute: Low back pain. Neuro: Denies acute: focal neurological deficit, motor or sensory focal neurological deficit, tremors, seizure like activity, confusion, dizziness, change in mental status, loss of bowel or bladder function, cauda equina like symptoms. : Denies acute: , hematuria, flank pain, increase in urinary frequency. PSYCH: Denies acute: hallucination, suicidal ideation, homicidal ideation. FEMALE: Denies acute: abnormal vaginal bleeding, foul odor, unusual discharge. PHYSICAL EXAM: General: --mild------acute distress, awake and alert. Head: normocephalic, atraumatic. No raccoon's eyes, no wong sign. Neck: supple, trachea is midline, no swelling. Throat: Normal phonation. Eyes:, no erythema, no purulent discharge, no proptosis, no icterus. Heart: regular rate, regular rhythm, no significant murmur appreciated. Lungs: no apparent respiratory distress, Able to speak in full sentences. No wheezing, no rhonchi, no crackles. No stridors Clear to auscultation bilaterally. Abdomen: Generalized tender to palpation, non distended, soft, no guarding, no rebound, + bowel sounds. Neuro: Awake, Alert, oriented to name, self, situation, follows commands GCS=15. Speech is normal. Skin: no petechia, no purpura, no cyanosis, non-pale, not jaundice. Lower extremities: --no - Pitting edema no deformity, no focal swelling, no calf TTP. Makes eye contact. moves all four extremities. Face: no apparent facial droop. Ambulating in the ED independently. ED COURSE: DISCLAIMER: This medical document was created using an electronic medical record system with voice recognition software and computerized dictation system. Although this document has been carefully reviewed, there might still be some phonetic and typographical errors. Occasional wrong-word or "sound-alike" substitutions may have occurred due to the inherent limitations of voice recognition software. These areas are purely typographical due to imperfections of the software programs and do not reflect any compromise in the patient's medical care. Please read the chart carefully and recognize, using context, where these substitutions have occurred. Chief Complaint: Pelvic Pain Time Seen by MD: 19:42 Reviewed Notes: Nurses Notes, Medications, Allergies Allergies: Coded Allergies: NO KNOWN ALLERGIES (Unverified , 08/05/24) Home Meds Active Scripts Sulfamethoxazole W/Trimethopri (Bactrim Ds Tablet) 1 Tab Tb, 1 TAB PO BID for 3 Days, #6 TAB Prov:SCOTT ADAIR MD 08/08/24 Reported Medications Ramelteon (Ramelteon) 8 Mg Tab, 1 TAB PO 08/05/24 Atorvastatin Calcium (ATORVASTATIN CALCIUM) 40 Mg Tab, 1 TAB PO 08/05/24 Cholecalciferol (Vitamin D-3 Super Strengt) 2,000 Unit Tab, 1 TAB PO DAILY 08/05/24 Information Source: Patient Mode of Arrival: Ambulatory Past Medical History PAST MEDICAL HISTORY: DM, Gallstones, Kidney Stones, UTI'S Surgical History: Appendectomy [employer]OR [employer] History: Denies all [employer] Hx Family History Family History: Reviewed,noncontributory to illness Social History Smoker: Non-Smoker Alcohol: Denies ETOH Use Drugs: Denies Drug Use Lives In: Home Was a procedure done? Was a procedure done?: No GI differential Dx Differential Diagnosis: Cholangitis, Cholecystitis, Esophagitis, Gastritis/PUD, Gastroenteritis, Inflammatory BD, UTI, Electrolyte Imbalance, Food Poisoning, Bacterial, Parasitic, Viral, Kidney Stone, Other (DDX include Diverticulitis, colitis, gastroenteritis, acute abdomen, SBO, enteritis, constipation, volvulus, appendicitis, Gallbladder disease, choledocolithiasis, ascending cholangitis, pancreatitis, intraAbdominal mass/neoplasm, hepatitis, UTI, pylonephritis, kidney stone, aneurysm, dissection, Inflammatory bowel disease, gastroparesis, ischemic bowel,,,,,,Food poisoning, bacterial/parasitic/viral etiology, trauma, diabetes DKA,ovarian torsion, ovarian cyst/mass, tubo-ovarian abscess, , ectopic , PID, STD.) X-Ray, Labs, Meds, VS Vital Signs Date Time Temp Pulse Resp B/P (MAP) Pulse Ox O2 Delivery O2 Flow Rate FiO2 03/25/25 21:26 98.3 82 18 144/80 (101) 96 98.3 03/25/25 21:26 82 18 96 Room Air 03/25/25 19:55 97.8 94 22 160/85 (110) 96 97.8 03/25/25 18:34 98.2 104 17 163/99 97 98.2 Lab Test 03/25/25 20:14 03/25/25 19:53 Range/Units Urine Color Colorless Yellow Urine Clarity Clear Clear Urine pH 5.5 5.0-9.0 Urine Specific [place] 1.005 1.001-1.035 Urine Protein Negative Negative Urine Ketones Negative Negative Urine Blood Negative Negative /uL Urine Nitrite Negative Negative Urine Bilirubin Negative Negative Urine Urobilinogen Normal Negative mg/dL Urine Leukocyte Esterase Negative Negative /uL Urine RBC None seen 0 - 4 /hpf Urine Microscopic WBC < 1 0-5 /HPF Urine Squamous Epithelial Cells Few <5 /hpf Urine Bacteria None seen None Seen /hpf Urine Glucose Normal Normal mg/dL White Blood Count 3.7 L 4.4-10.8 10^3/uL Red Blood Count 4.78 4.0-5.20 10^6/uL Hemoglobin 12.7 12.2-16.2 g/dL Hematocrit 38.5 36.0-46.0 % Mean Corpuscular Volume 80.6 80.0-100.0 fL Mean Corpuscular Hemoglobin 26.7 L 28.0-32.0 pg Mean Corpuscular Hemoglobin Concent 33.1 32.0-36.0 g/dL Red Cell Distribution Width 16.9 H 11.8-14.3 % Platelet Count 241 140-450 10^3/uL Mean Platelet Volume 8.6 6.9-10.8 fL Neutrophils (%) (Auto) 52.0 37.0-80.0 % Lymphocytes (%) (Auto) 36.7 10.0-50.0 % Monocytes (%) (Auto) 7.5 0.0-12.0 % Eosinophils (%) (Auto) 3.5 0.0-7.0 % Basophils (%) (Auto) 0.3 0.0-2.0 % Neutrophils # (Auto) 1.9 1.6-8.6 10 ^3/uL Lymphocytes # (Auto) 1.4 0.4-5.4 10 ^3/uL Monocytes # (Auto) 0.3 0-1.3 10 ^3/uL Eosinophils # (Auto) 0.1 0-0.8 10 ^3/uL Basophils # (Auto) 0 0-0.2 10 ^3/uL Nucleated Red Blood Cells 0.2 % Sodium Level 142 136-145 mmol/L Potassium Level 3.7 3.5-5.1 mmol/L Chloride Level 103 98-107 mmol/L Carbon Dioxide Level 29 20-31 mmol/L Anion Gap 10 5-15 Blood Urea Nitrogen 14 9-23 mg/dL Creatinine 0.80 0.550-1.02 mg/dL Glomerular Filtration Rate Calc 89 >90 mL/min BUN/Creatinine Ratio 17.5 10.0-20.0 Serum Glucose 143 H 74-106 mg/dL Lactic Acid Level 2.0 0.4-2.0 mmol/L Calcium Level 9.6 8.7-10.4 mg/dL Total Bilirubin 0.6 0.2-1.0 mg/dL Aspartate Amino Transferase (AST) 14 13-40 U/L Alanine Aminotransferase (ALT) 12 7-40 U/L Alkaline Phosphatase 91 46-116 U/L Total Protein 7.8 5.7-8.2 g/dL Albumin 4.9 H 3.2-4.8 g/dL [place] [id number] Ph: [phone] DIAGNOSTIC IMAGING Diagnostic Imaging Report : [id number] Signed PATIENT: ROSS GAMINGACCT: [id number] UNIT: [id number] : 1970 LOC: ER ROOM / BED: / AGE / SEX: 54 / F ADM STATUS: REG ER SERVICE 43 ORDERING PHYSICIAN: BEKAH ARIAS DO PROCEDURE(s): ABPL - CT AB PEL WO CON-NO ORAL OR IV REASON: abd pain ORDER NUMBER(s): [id number], ACCESSION NUMBER(s): [id number] Exam: CT CT AB PEL WO CON-NO ORAL OR IV History: abd pain Comparison Study: CT CT AB PEL WO CON-NO ORAL OR IV on DOS: 08/05/24 Technique: Multidetector spiral CT of the abdomen was performed from lung bases to pubic symphysis. Imaging was performed without IV contrast. Axial, coronal and sagittal multiplanar reformats were obtained from the axial data set by the technologist. Radiation Dose : 1. Abdomen/Pelvis: CTDIvol 10.85 mGy, DLP 568.81 mGy*cm. Findings: Evaluation of solid organs is limited due to lack of intravenous contrast use. Lung Bases: No acute or significant lung base finding. Normal heart size. No pleural or pericardial effusion. Liver: The liver is normal in size. No focal lesions. Gallbladder and Biliary Tree: Unremarkable Spleen: Unremarkable Pancreas: The pancreas is grossly normal in appearance. Adrenal Glands: Unremarkable Kidneys: Kidneys are grossly normal without calculi or hydronephrosis. Bladder: Grossly unremarkable for degree of distention. Bowel: The stomach is grossly normal in appearance. Small bowel and colon are normal in caliber and distribution. The appendix is not visualized; however, no secondary findings of acute appendicitis identified. Ascites: Absent Lymphadenopathy: No mesenteric, retroperitoneal or periportal lymphadenopathy. Abdominal Wall and Mesentery: Unremarkable. Vasculature: The visualized abdominal aorta is normal in size and caliber. Evaluation of abdominal and pelvic vessels is limited due to lack of intravenous contrast. Pelvic Organs: Unremarkable Musculoskeletal: No aggressive focal bony lesions, acute fractures or dislocation. IMPRESSION: No acute abdominal or pelvic findings. Radiation optimization: All CT scans at this facility use at least one of these dose optimization techniques: automated exposure control mA and/or kV adjustment per patient size (includes targeted exams where dose is matched to clinical indication) or iterative reconstruction. ATED BY: MINA ORTIZ MD DICTATED DATE/TIME: 03/25/252033 SIGNED BY: MINA ORTIZ MD SIGNED DATE/TIME: 03/25/252033 CC: Time of 1ST Reevaluation: 19:46 Reevaluation 1ST: Unchanged Patient Education/Counseling: Diagnosis, Treatment Family Education/Counseling: No Family Present Comments MDM: patient presented with the above HPI.---abdominal pain---workup was initiated. patient was found with the above mentioned diagnosis. the following medications were ordered: please refer to order lists of meds and tests obtained by myself Dr. Arias. Patient ED course and VS have been stabilized. Patient has been reassessed in the ED and remained in a stable condition. Pertinent incidental findings were discussed with the patient and/or family. Patient/family voices understanding and is agreeable with plan. Patient has been observed in the ED adequate length of time to insure improvement/stability. Escalation of care considered: Consideration of escalation to observation or admission Patient was DISCHARGED home in a stable condition. All the reports of any imaging studies that were ordered by myself were reviewed by myself. Departure 1 Departure Time of Disposition: 21:13 Impression: Primary Impression: Abdominal pain Disposition: HOME / SELF CARE / HOMELESS Condition: Stable Additional Instructions: Additional instructions: Please read all instructions provided in this packet carefully. You MUST follow-up with your primary care/family doctor in 1 to 2 days. If you are unable to see your primary care/family doctor, please return to our emergency room for re-assessment and re-evaluation in 1 to 2 days. Return to the emergency room here in our facility or to the nearest ER [facility] if your symptoms change or worsen. CONSULTATIONS: you MUST Follow-up for consultation as soon as possible with: -gastroenterology and OB Gyne doctor in 1-2 days. Please call for appointment. You MUST call the consultants office yourself to make an appointment. You may need to arrange that through your insurance and/or your primary/family doctor. If you are unable to see the oracle database consultant in 1 to 2 days, you must return to our emergency room (or any other ER of your choice) for re-assessment and re- evaluation. Adequate fluid hydration. Although you have been discharged from the Emergency Department, this does not mean that you have a "clean bill of health". No definitive diagnosis for your symptoms has been made today. It is possible that you are in the process of developing a serious illness. This is why you must return to the ED without fail if any new or worsening symptoms develop. Avoid fatty greasy spicy food. Avoid caffeinated products. Avoid NSAIDs. Your symptoms today could be due to the H pylori medications you are taking. Below is a copy of your radiological report for follow up: [place] [address] Ph: [phone] DIAGNOSTIC IMAGING Diagnostic Imaging Report : [id number] Signed PATIENT: ROSS GAMING ACCT: [id number] UNIT: [id number] : 1970 LOC: ER ROOM / BED: / AGE / SEX: 54 / F ADM STATUS: REG ER SERVICE 43 ORDERING PHYSICIAN: BEKAH ARIAS DO PROCEDURE(s): ABPL - CT AB PEL WO CON-NO ORAL OR IV REASON: abd pain ORDER NUMBER(s): [id number], ACCESSION NUMBER(s): [id number] Exam: CT CT AB PEL WO CON-NO ORAL OR IV History: abd pain Comparison Study: CT CT AB PEL WO CON-NO ORAL OR IV on DOS: 08/05/24 Technique: Multidetector spiral CT of the abdomen was performed from lung bases to pubic symphysis. Imaging was performed without IV contrast. Axial, coronal and sagittal multiplanar reformats were obtained from the axial data set by the technologist. Radiation Dose : 1. Abdomen/Pelvis: CTDIvol 10.85 mGy, DLP 568.81 mGy*cm. Findings: Evaluation of solid organs is limited due to lack of intravenous contrast use. Lung Bases: No acute or significant lung base finding. Normal heart size. No pleural or pericardial effusion. Liver: The liver is normal in size. No focal lesions. Gallbladder and Biliary Tree: Unremarkable Spleen: Unremarkable Pancreas: The pancreas is grossly normal in appearance. Adrenal Glands: Unremarkable Kidneys: Kidneys are grossly normal without calculi or hydronephrosis. Bladder: Grossly unremarkable for degree of distention. Bowel: The stomach is grossly normal in appearance. Small bowel and colon are normal in caliber and distribution. The appendix is not visualized; however, no secondary findings of acute appendicitis identified. Ascites: Absent Lymphadenopathy: No mesenteric, retroperitoneal or periportal lymphadenopathy. Abdominal Wall and Mesentery: Unremarkable. Vasculature: The visualized abdominal aorta is normal in size and caliber. Evaluation of abdominal and pelvic vessels is limited due to lack of intravenous contrast. Pelvic Organs: Unremarkable Musculoskeletal: No aggressive focal bony lesions, acute fractures or dislocation. IMPRESSION: No acute abdominal or pelvic findings. Radiation optimization: All CT scans at this facility use at least one of these dose optimization techniques: automated exposure control mA and/or kV adjustment per patient size (includes targeted exams where dose is matched to clinical indication) or iterative reconstruction. ATED BY: MINA ORTIZ MD DICTATED DATE/TIME: 03/25/252033 SIGNED BY: MINA ORTIZ MD SIGNED DATE/TIME: 03/25/252033 CC: Discharged With: Self Critical Care Note Critical Care Time?: No I personally scribed for BEKAH ARIAS DO ([email or web address]) on 03/25/25 at 19:53. Electronically submitted by Trace Clifford ([email or web address]). I personally scribed for BEKAH ARIAS DO ([email or web address]) on 03/25/25 at 21:15. Electronically submitted by Trace Clifford ([email or web address]). BEKAH ARIAS DO Mar 25, 2025 19:53
[2025-03-25 20:27] LABS: Hematocrit 38.5 % (36.0-46.0); Hemoglobin 12.7 g/dL (12.2-16.2); Mean Corpuscular Hemoglobin 26.7 pg (28.0-32.0); Mean Corpuscular Volume 80.6 fL (80.0-100.0); Nucleated Red Blood Cells % 0.2 %
[2025-03-25 20:28] LABS: Urine Protein, UAD Negative (Negative)
--- NOTE | 2025-03-25 20:37 | DVH ---
Exam: CT CT AB PEL WO CON-NO ORAL OR IV History: abd pain Comparison Study: CT CT AB PEL WO CON-NO ORAL OR IV on DOS: 08/05/24 Technique: Multidetector spiral CT of the abdomen was performed from lung bases to pubic symphysis. Imaging was performed without IV contrast. Axial, coronal and sagittal multiplanar reformats were obtained from the axial data set by the technologist. Radiation Dose : 1. Abdomen/Pelvis: CTDIvol 10.85 mGy, DLP 568.81 mGy*cm. Findings: Evaluation of solid organs is limited due to lack of intravenous contrast use. Lung Bases: No acute or significant lung base finding. Normal heart size. No pleural or pericardial effusion. Liver: The liver is normal in size. No focal lesions. Gallbladder and Biliary Tree: Unremarkable Spleen: Unremarkable Pancreas: The pancreas is grossly normal in appearance. Adrenal Glands: Unremarkable Kidneys: Kidneys are grossly normal without calculi or hydronephrosis. Bladder: Grossly unremarkable for degree of distention. Bowel: The stomach is grossly normal in appearance. Small bowel and colon are normal in caliber and distribution. The appendix is not visualized; however, no secondary findings of acute appendicitis identified. Ascites: Absent Lymphadenopathy: No mesenteric, retroperitoneal or periportal lymphadenopathy. Abdominal Wall and Mesentery: Unremarkable. Vasculature: The visualized abdominal aorta is normal in size and caliber. Evaluation of abdominal and pelvic vessels is limited due to lack of intravenous contrast. Pelvic Organs: Unremarkable Musculoskeletal: No aggressive focal bony lesions, acute fractures or dislocation. IMPRESSION: No acute abdominal or pelvic findings. Radiation optimization: All CT scans at this facility use at least one of these dose optimization techniques: automated exposure control mA and/or kV adjustment per patient size (includes targeted exams where dose is matched to clinical indication) or iterative reconstruction.
[2025-03-25 20:43] LABS: Alanine Aminotransferase 12 U/L (7-40); Alkaline Phosphatase 91 U/L (46-116); Anion Gap 10 (5-15); BUN/Creatinine Ratio 17.5 (10.0-20.0); Bilirubin, Total 0.6 mg/dL (0.2-1.0); Blood Urea Nitrogen 14 mg/dL (9-23); Calcium 9.6 mg/dL (8.7-10.4); Carbon Dioxide 29 mmol/L (20-31); Chloride 103 mmol/L (98-107); Potassium 3.7 mmol/L (3.5-5.1); Sodium 142 mmol/L (136-145); Total Protein 7.8 g/dL (5.7-8.2)
[2025-03-25 20:47] LABS: Albumin 4.9 g/dL (3.2-4.8); Glucose 143 mg/dL (74-106)
[2025-03-25 21:26] VITALS: BP 144/80; PULSE 82; RESP 18; TEMP 98.3; O2SAT 96
== END 2025-03-25 21:26 | disposition home or self-care (01) ==
LOC: ER 18:31
DX: R10.84 Generalized abdominal pain (principal); E11.9 Type 2 diabetes mellitus without complications; Z90.49 Acquired absence of other specified parts of digestive tract; Z79.899 Other long term (current) drug therapy
CPT/HCPCS: 36415; 74176; 80053; 81001; 83605; 85025